=== PATIENT | male | born 1980 | race Two or more races ===

== ENCOUNTER 2017-11-26 04:15 | Emergency (ER) | payer BC ==
[~2017-11-26] VITALS: Ht 172.7 cm; Wt 83.9 kg
[2017-11-26 04:15] VITALS: BP 115/68
[2017-11-26] MEDS ORDERED: HYDROmorphone 1mg/ml Carpuject IVP ONE (04:30)
[2017-11-26] MEDS ORDERED: Morphine Sulfate 4mg/ml Inj ONE (04:32)
--- NOTE | 2017-11-26 04:36 | Emergency Room Report ---
History of Present Illness General Chief Complaint: Abdominal Pain Source: Patient, Friend Present Illness HPI Is a 37-year-old male with no medical history. He just finished a course of antibiotics last Levaquin for bronchitis. He presents with chief complaint abdominal pain. Pain is epigastric area. Onset was about an hour prior to arrival. Pain was sharp without any radiation initially. Then it came back and severe of a mild radiation to the back. No fever or chills. Pain is 10 out of 10. One episode of vomiting is nonbloody nonbilious. Diarrhea. Allergies: Coded Allergies: No Known Allergies (Unverified , 11/26/17) Patient History Past Medical History: see triage record, old chart reviewed Past Surgical History: other Pertinent Family History: none Social History: Denies: smoking Immunizations: other Reviewed Nursing Documentation: PMH: Agreed, PSxH: Agreed Nursing Documentation-PMH Past Medical History: No History, Except For Review of Systems Eye: Denies: eye pain, blurred vision ENT: Denies: ear pain, nose congestion, throat swelling Respiratory: Denies: cough, shortness of breath Cardiovascular: Denies: chest pain, palpitations Gastrointestinal: Reports: abdominal pain, nausea, vomiting, Denies: diarrhea Musculoskeletal: Denies: back pain, joint pain Skin: Denies: rash Neurological: Denies: headache, numbness Endocrine: Denies: increased thirst, increased urine Hematologic/Lymphatic: Denies: easy bruising All Other Systems: negative except mentioned in HPI Physical Exam Vital Signs Date Time Temp Pulse Resp B/P (MAP) Pulse Ox O2 Delivery O2 Flow Rate FiO2 11/26/17 04:02 97.9 77 21 131/65 99 Room Air vitals normal Sp02 EP Interpretation: reviewed, normal General Appearance: well appearing, alert, moderate distress - Secondary to pain Head: normocephalic, atraumatic Eyes: bilateral eye PERRL, bilateral eye EOMI ENT: hearing grossly normal, normal pharynx Neck: full range of motion, supple, no meningismus Respiratory: chest non-tender, lungs clear, normal breath sounds Cardiovascular #1: regular rate, rhythm, no murmur Gastrointestinal: normal bowel sounds, no mass, no organomegaly, no bruit, non- distended, tenderness - Epigastric Musculoskeletal: back normal, gait/station normal, normal range of motion Psychiatric: mood/affect normal Skin: warm/dry Medical Decision Making Diagnostic Impression: Primary Impression: Abdominal pain of unknown etiology ER Course Patient with abdominal pain. Unknown etiology. Labs and CT scan negative. Differential include gas pain, ulcer, reflux to name a few. No evidence of acute abdomen. Lab Results Impression labs normal CT/MRI/US Diagnostic Results CT/MRI/US Diagnostic Results : Imaging Test Ordered: CT abdomen and pelvis Impression negative per radiologist Last Vital Signs Date Time Temp Pulse Resp B/P (MAP) Pulse Ox O2 Delivery O2 Flow Rate FiO2 11/26/17 04:02 97.9 77 21 131/65 99 Room Air Status: improved Disposition: HOME, SELF-CARE Condition: Stable Scripts Omeprazole Magnesium (PRILOSEC OTC) 20 Mg Tablet. 20 MG ORAL DAILY, #30 TAB Prov: ANAMARIA STRANGE M.D. 11/26/17 Patient Instructions: Abdominal Pain, Adult Additional Instructions: Followup with your DrPorfirio in 2-3 days. Return if symptom worsen. You may benefit from a GI referral. ANAMARIA STRANGE M.D. Nov 26, 2017 04:35
[2017-11-26] MEDS ORDERED: Morphine Sulfate 4mg/ml Inj IVP ONE (04:45)
[2017-11-26 04:52] LABS: BASOPHILS % (AUTO) 0.4 % (0.0-2.0); EOSINOPHILS % (AUTO) 1.6 % (0.0-3.0); LYMPHOCYTES % (AUTO) 24.5 % (20.0-45.0); MEAN CORPUSCULAR HEMOGLOBIN 31.7 PG (27.0-31.0); MEAN CORPUSCULAR HGB CONC 34.6 G/DL (32.0-36.0); MEAN CORPUSCULAR VOLUME 92 FL (80-99); MONOCYTES % (AUTO) 6.5 % (1.0-10.0); PLATELET COUNT 208 K/UL (150-450); RED CELL DISTRIBUTION WIDTH 10.8 % (11.6-14.8); WHITE BLOOD COUNT 9.7 K/UL (4.8-10.8)
[2017-11-26 04:53] LABS: APPEARANCE,URINE CLEAR; KETONES,URINE NEGATIVE (NEGATIVE); LEUKOCYTE ESTERASE ,URINE NEGATIVE (NEGATIVE); NITRITE,URINE NEGATIVE (NEGATIVE); PH,URINE 6 (4.5-8.0); PROTEIN,URINE NEGATIVE (NEGATIVE); UROBILINOGEN,URINE NORMAL MG/DL (0.0-1.0)
[2017-11-26 05:05] VITALS: BP 120/71
[2017-11-26 05:19] LABS: ANION GAP 9 mmol/L (5-15); CALCIUM 8.1 MG/DL (8.5-10.1); CARBON DIOXIDE 30 MMOL/L (21-32); CHLORIDE 103 MMOL/L (98-107); CREATININE 1.1 MG/DL (0.55-1.30); GLOMERULAR FILTRATION RATE > 60 mL/min (>60); POTASSIUM 3.7 MMOL/L (3.5-5.1); SODIUM 142 MMOL/L (136-145)
[2017-11-26 05:24] LABS: ALANINE AMINOTRANSFERASE 30 U/L (12-78); ALBUMIN/GLOBULIN RATIO 1.2 (1.0-2.7); ASPARTATE AMINO TRANSFERASE 24 U/L (15-37); LIPASE 103 U/L (73-393); TOTAL PROTEIN 7.7 G/DL (6.4-8.2)
[2017-11-26] MEDS ORDERED: PRILOSEC OTC20 MG ORAL (06:09)
[2017-11-26 06:20] VITALS: BP 107/69
[2017-11-26 06:30] VITALS: BP 107/69
--- NOTE | 2017-11-26 09:51 | Diagnostic Imaging Report ---
Indication: Abdominal pain Technique: Continuous helical transaxial imaging of the abdomen and pelvis was obtained from the lung bases to the pubic symphysis. No intravenous contrast was administered. Coronal 2-D reformats were also obtained. Automatic Exposure Control was utilized. Total Dose length Product (DLP): 909.[address] Dose Index Volume (CTDIvol): 16.38 mGy Comparison: none Findings: Spleen is prominent. There is no nephrolithiasis or hydronephrosis. No free fluid identified. Gallbladder is unremarkable. Lung bases are clear. No evidence of acute appendicitis with a normal-appearing appendix. No free fluid or free air. IMPRESSION: Borderline splenomegaly. Negative examination otherwise. [facility] has communicated the preliminary results to the Emergency Department. Their findings are largely concordant with this report. The CT scanner at [facility] is accredited by the [employer] and the scans are performed using dose optimization techniques as appropriate to a performed exam including Automatic Exposure control.
== END 2017-11-26 06:30 | disposition home or self-care (01) ==
LOC: EDBD 04:15 → EMR 04:20
DX: R10.9 Unspecified abdominal pain (principal); R11.2 Nausea with vomiting, unspecified
CPT/HCPCS: 36415; 74176; 80053; 81003; 83690; 85025; 96361; 96374; 96375; 99284; J2270; J2405